=== PATIENT | male | born 1990 | race Caucasian/White ===

== ENCOUNTER 2019-12-23 20:30 | Emergency (ER) | payer OTHER ==
[2019-12-23 20:49] VITALS: BMI 24.3
[2019-12-23 21:28] LABS: ALBUMIN 4.6 g/dl (3.4-5.0); BILIRUBIN,TOTAL 1.8 mg/dl (0.2-1); CALCIUM 9.9 mg/dl (8.5-10); CREATININE 0.9 mg/dl (0.55-1.3); POTASSIUM 3.9 mmol/L (3.5-5.1); TOT PROT 7.4 g/dl (6.4-8.2)
--- NOTE | 2019-12-23 21:49 | PDOC ---
Documentation entered by Emelyn Nevarez SCRIBE, acting as scribe for Brooke Dai MD. Brooke Dai MD: This documentation has been prepared by the scribeRoque Ana, SCRIBE, under my direction and personally reviewed by me in its entirety. I confirm that the documentation accurately reflects all work, treatment, procedures, and medical decision making performed by me. History of Present Illness - General Chief Complaint: Overdose Stated Complaint: overdose History Source: Patient - History of Present Illness Initial Comments: 12/23/19 20:38 Patient is a 29 year old male with a significant past medical history of bipolar illness, anxiety, depression, hypertension, hypothyroidism, depression, schiz oaffective disorder, and autism spectrum who presents to the ED after overdosing with his own medications. Per patient's mother, she accidentally left patient's medications on the kitchen table and the patient went and "helped himself". Patient regularly resides in a community living center. Patient endorses: feeling tired, dry mouth, and thirstiness. Patient denies: "feeling hot", fever, chills, or any other related symptoms Allergies: clozapine, quetiapine, risperidone, sulfonamide antibiotics Past History - Medical History Allergies/Adverse Reactions: Allergies Allergy/AdvReac Type Severity Reaction Status Date / Time clozapine [From Clozaril] Allergy Verified 12/23/19 20:33 quetiapine [From Seroquel] Allergy Verified 12/23/19 20:33 risperidone Allergy Verified 12/23/19 20:33 Sulfa (Sulfonamide Allergy Verified 12/23/19 20:33 Antibiotics) Home Medications: Ambulatory Orders Amlodipine Besylate [Norvasc -] 5 mg PO DAILY 12/23/19 Lamotrigine [Lamictal] 200 mg PO HS 12/23/19 Levothyroxine [Synthroid -] 50 mcg PO DAILY 12/23/19 [place] Carbonate [Eskalith -] 450 mg PO BID 12/23/19 Lorazepam [Ativan] 2 mg PO HS 12/23/19 Lumateperone Tosylate [Caplyta] 42 mg PO HS 12/23/19 Metformin HCl [Glucophage] 500 mg PO BID 12/23/19 Olanzapine [Zyprexa] 10 mg PO BID 12/23/19 COPD: No Psychiatric Problems: Yes (DEPRESSION, SCHITZO AFFECTIVE) - Psycho-Social/Smoking History Smoking History: Never smoked Review of Systems - Review of Systems Able to Perform ROS?: Yes Comments:: 12/23/19 20:40 GEN: +Tiredness. No fever, chills, night sweats, malaise, or unintentional w eight change HEENT: +Dry mouth/ thirsty. No ear pain, congestion, vision change, or eye pain CV: no chest pain, palpitations, lightheadedness, syncope, or edema RESP: no cough, wheezing, or SOB GI: no abdominal pain, nausea, vomiting, diarrhea, constipation, or white/black/bloody stool : no dysuria, hematuria, frequency, incontinence, retention, or discharge MSK: no muscle weakness or pain, no joint swelling or pain NEURO: no headache, seizure, vertigo, imbalance, numbness, tingling, focal wea kness, or difficulty walking/talking PSYCH: no insomnia, behavior change, SI, HI, or substance use SKIN: no prurtitis, excessive dryness, jaundice, rash, cuts, or unexplained bruises ROS otherwise negative except as noted in HPI *Physical Exam - Physical Exam 12/23/19 20:40 GENERAL: nontoxic-appearing, A/Ox4, no distress, answers questions appropriately HEENT: PERRLA, EOMI, moist mucous membranes NECK/BACK: no midline ttp, no spinal stepoff or deformity, no hematoma, full ROM, neck supple CARDIOVASCULAR: regular rate/rhythm, no MGR, strong peripheral pulses, capillary refill <2 seconds, extremities wwp, no edema LUNGS/RESPIRATORY: no respiratory distress, CTAB GI/ABDOMEN: symmetric [id number], normoactive BS, soft, no ttp, no midline pulsatile masses : no CVA tenderness MSK/EXTREMITIES: no muscle atrophy, no acute deformity SKIN: warm and dry, no pallor, no jaundice, no rash, no pathologic-appearing bruising, no skin breakdown, no cuts, no lesions NEUROLOGICAL: GCS 15, CN II-XII grossly intact, 5/5 strength proximally and d istally, no facial droop ED Treatment Course - LABORATORY CBC & Chemistry Diagram: 12/23/19 20:59 Medical Decision Making - Medical Decision Making 12/23/19 21:49 EKG normal; labs normal [place] level pending 12/27/19 06:57 [place] 0.7; normal range Discharge - Discharge Information Problems reviewed: Yes Clinical Impression/Diagnosis: Accidental overdose Condition: Improved Disposition: HOME - Admission No - Follow up/Referral Referrals: Krystian Guevara [Primary Care Provider] - - Patient Discharge Instructions Patient Printed Discharge Instructions: DI for Drug Overdose in Adults - Post Discharge Activity
[2019-12-23 23:36] VITALS: BP 152/100; PULSE 102; TEMP 98
[2019-12-23] MEDS ORDERED: amLODIPine BESYLATE 5 MG TABLET (FP) PO ONE (23:36)
[2019-12-23] MEDS ORDERED: amLODIPine BESYLATE 5 MG TABLET (FP) ONE (23:37)
--- NOTE | 2019-12-24 10:55 | EKG ---
Test Reason : Blood Pressure : / mmHG Vent. Rate : 073 BPM Atrial Rate : 073 BPM P-R Int : 134 ms QRS Dur : 114 ms QT Int : 386 ms P-R-T Axes : 041 -22 019 degrees QTc Int : 425 ms NORMAL SINUS RHYTHM POSSIBLE LEFT ATRIAL ENLARGEMENT INCOMPLETE RIGHT BUNDLE BRANCH BLOCK LEFT VENTRICULAR HYPERTROPHY ABNORMAL ECG Confirmed by PK MEDELLIN MD ([id number]) on 12/24/2019 10:55:01 AM Referred By: DR ROSSI Confirmed By:PK MEDELLIN MD
== END 2019-12-23 23:43 | disposition home or self-care (01) ==
LOC: FER 20:30
DX: T50.901A Poisoning by unspecified drugs, medicaments and biological substances, accidental (unintentional), initial encounter (principal)
CPT/HCPCS: 36415; 80053; 80178; 82550; 93005; 99284-25